=== PATIENT | female | born 1965 | race Caucasian/White ===

== ENCOUNTER 2024-01-09 15:03 | Emergency (ER) | payer SELFPAY ==
[2024-01-09] MEDS ORDERED: Ibuprofen 800 MG TAB ONE (15:43)
== END 2024-01-09 15:48 | disposition home or self-care (01) ==
LOC: MADERS 15:03
DX: K04.7 Periapical abscess without sinus (principal); R03.0 Elevated blood-pressure reading, without diagnosis of hypertension; F17.210 Nicotine dependence, cigarettes, uncomplicated; M19.90 Unspecified osteoarthritis, unspecified site
CPT/HCPCS: 99283

== ENCOUNTER 2025-08-06 09:55 | Emergency (ER) | payer OTHER, SELFPAY ==
[~2025-08-06 09:55] MED LIST: Iopamidol 370 76% 100 ML VIAL ONE
[2025-08-06] MEDS ORDERED: Lidocaine Viscous Sol 2% 15 ml UD Cup ONE (10:38)
[2025-08-06] MEDS ORDERED: Mag-Al 1200 mg/1200 mg/30 ML UDCUP ONE (10:38)
[2025-08-06] MEDS ORDERED: Ondansetron PF 4 MG/2 ML Vial ONE (11:13)
[2025-08-06 11:23] LABS: Hematocrit 52.5 % (36.0-47.0); Hemoglobin 17.0 g/dL (12.0-16.0); MDiff Complete? YES; Mean Corpuscular Hemoglobin 27.2 pg (27.0-31.0); Mean Corpuscular Volume 84.1 fl (78.0-98.0); Platelet Adequacy Comment Appears Adequate; Platelet Count 297 10x3/uL (130-400); Red Blood Cell (RBC) Count 6.24 mill/uL (4.20-5.40); White Blood Cell (WBC) Count 9.7 10x3/uL (4.8-10.8)
[2025-08-06 11:33] LABS: ALT (SGPT) 57 U/L (Less than 34); AST (SGOT) 40 U/L (11-34); Albumin 4.3 g/dL (3.1-4.5); Alkaline Phosphatase 134 U/L (40-110); Anion Gap 19 mmol/L (10-20); BUN (Urea Nitrogen) 9 mg/dL (9.8-20.1); Bilirubin, Total 0.8 mg/dL (0.3-1.2); Calc. Creatinine Clearance 0 mL/min (70-130); Calcium 10.5 mg/dL (7.8-10.44); Carbon Dioxide 24 mmol/L (23-31); Chloride 98 mmol/L (98-107); Globulin 3.7 g/dL (2.4-3.5); Lipase 14 U/L (8-78); Potassium 3.7 mmol/L (3.5-5.1); Sodium 137 mmol/L (136-145)
[2025-08-06 11:34] LABS: Glucose 400 mg/dL (80-115)
[2025-08-06 11:35] LABS: Glucose, Urine (Dipstick) >=1000 mg/dL (Negative); Leukocyte Negative (Negative); Protein, Urine (Dipstick) 100 mg/dL (Neg-Trace); Specific Gravity, Urine 1.020 (1.005-1.030)
[2025-08-06 11:36] LABS: Troponin I 0.010 ng/mL (< 0.028)
[2025-08-06 11:39] LABS: RBC/HPF 0-3 HPF (0-3)
[2025-08-06 11:40] LABS: Bacteria/HPF 2+ HPF (None Seen); CAUTI Indications for Culture Pelvic or flank pain
[2025-08-06 11:41] LABS: Urine Culture Reflex No No
[2025-08-06] MEDS ORDERED: Metoclopramide HCl 10 MG (2 mL) VIAL ONE (11:51)
== END 2025-08-06 14:58 | disposition short-term general hospital (02) ==
LOC: MADERS 09:55
DX: I16.0 Hypertensive urgency (principal); E11.9 Type 2 diabetes mellitus without complications; I10 Essential (primary) hypertension; Z87.891 Personal history of nicotine dependence
CPT/HCPCS: 74177; 80053; 81001; 83690; 84484; 85025; 93005; 96374; 96375; J2270; J2405; J2765; J7030; Q9967